=== PATIENT | female | born 1985 | race Caucasian/White ===

== ENCOUNTER 2022-02-06 09:04 | Day surgery (SDC) | payer MEDICAID, SELFPAY ==
[2022-02-06] VITALS (13 sets, daily range): BP systolic 81–116; BP diastolic 43–78; PULSE 51–72; RESP 16; TEMP 36.1–36.7; O2SAT 96–100; BMI 26.7
[2022-02-06 09:30] LABS: Ur HCG Qualitative* Negative (Negative)
[2022-02-06] MEDS: LACTATED RINGERS 1000 ML 1,000 ML 100 ML IV (09:45)
[2022-02-06] MEDS: SODIUM CHLORIDE 0.9 % (FLUSH) 10 ML SYRINGE IVF ×2 (09:45→12:19)
[2022-02-06] MEDS: CEFAZOLIN 2 GM INJ IVP (11:09)
[2022-02-06] MEDS: BUPIVACAINE 0.25% 30 ML INJECTION (11:50)
--- NOTE | 2022-02-06 11:53 | PM.ORPRC ---
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 MRI scan is consistent with this diagnosis. Operative intervention was recommended. For The risks, benefits and expected outcomes were discussed in detail. These included but were not limited to: Infection, bleeding, injury to blood vessel or nerve, venous thromboembolism. All questions were answered to their satisfaction. PROCEDURE: Spinal anesthesia was administered. The patient was placed supine on the operating room table. The right lower extremity was prepped and draped in the usual sterile fashion. The limb was exsanguinated with the Donal bandage. The pneumatic tourniquet was inflated to 300 mmHg. The previously placed standard anterolateral portal was established. It was quite difficult to enter the anterior aspect of the knee, presumably because of the scarring. In fact after multiple attempts through the standard anterolateral portal we elected to introduce the arthroscope into the knee through the previously placed anteromedial portal. Diagnostic arthroscopy was performed with findings as follows: There is a marked amount of scarring in the anterior aspect of the knee, anterior to the graft. The shaver was placed through the anterolateral portal and was used to debride the scarring to AD in visualization. The scarring was not just in the notch but was in the notch, anterior to the ACL and medial and lateral, just over the anterior horns of the medial and lateral menisci. The scar was aggressively debrided with the shaver through both portals. The suprapatellar pouch is normal. Articular surface on the patella is normal. Articular surface on the trochlea is normal. The medial gutter is normal. The medial compartment shows diffuse grade 3 change on the medial femoral condyle, grade 2 change on the medial tibial plateau. The medial meniscus is normal. The notch shows the ACL graft to be intact. The lateral compartment shows normal articular cartilage on the lateral femoral condyle and lateral tibial plateau. The lateral meniscus is normal. The lateral gutter is normal. Arthroscopic instruments were removed, the portal sites were Steri-Stripped closed, the knee was infiltrated with 30 mL of 0.25% Marcaine without epinephrine. A dry dressing was applied, the tourniquet was released. Sponge and needle counts were correct x 2. The patient tolerated the procedure well. There were no apparent complications. They were carefully transferred to the hospital bed and taken to the postanesthesia care unit in satisfactory condition. PLAN: The patient will be discharged to home. They may weightbear as tolerates. Range of motion will be unrestricted. They will follow up in the office next week for a wound check.
--- NOTE | 2022-02-06 12:04 | W.ANESCHARGE ---
Anesthesia Charges Start Date/Time Anesthesia Start Date: 02/06/22 Anesthesia Start Time: 10:56 Stop Date/Time Anesthesia Stop Date: 02/06/22 Anesthesia Stop Time: 12:02 Summary Emergency: No
--- NOTE | 2022-02-06 12:11 | SUR.PHASEI ---
Pts bp 81/49 placed in [place] pt did have spinal will continye to watch bp denies any chest pain,sob
--- NOTE | 2022-02-06 12:20 | SUR.PHASEI ---
pts bp 81/49 hr 54 5mg ephedrine given per order watch bp
--- NOTE | 2022-02-06 12:22 | W.ANESCHARGE ---
Anesthesia Charges Start Date/Time Anesthesia Start Date: 02/06/22 Anesthesia Start Time: 10:56 Stop Date/Time Anesthesia Stop Date: 02/06/22 Anesthesia Stop Time: 12:02 Summary Emergency: No
[2022-02-06] MEDS: hydrOXYzine pamoate 25 MG CAPSULE PO (13:20)
--- NOTE | 2022-02-06 13:53 | SUR.PHASEII ---
DISCHARGE INSTRUCTIONS GIVEN TO PT SHE UNDERSTANDS AND HAS NO FURTHER QUESTIONS.
== END 2022-02-06 14:14 | disposition home or self-care (01) ==
PROVIDERS: PCP Family Medicine; Visit Provider Orthopaedic Surgery
PROC: (CPT 29870; principal; 2022-02-06 10:30)
DX: T84.498A Other mechanical complication of other internal orthopedic devices, implants and grafts, initial encounter (principal); M25.861 Other specified joint disorders, right knee
CPT/HCPCS: 29877; 01400; 81025; A9270; J0690; J1100; J2250; J2400; J2405; J2704; J3010; J3490; J7120

== ENCOUNTER 2023-05-27 07:02 | Outpatient (CLI) | payer MEDICAID, SELFPAY ==
--- NOTE | 2023-05-27 07:15 | CRLHL7_ITS ---
For Patients: As a result of the Century Cures Act, medical imaging exams and procedure reports are released immediately into your electronic medical record. You may view this report before your referring provider. If you have questions, please contact your health care provider. Indication: BILATERAL LEG WEAKNESS Technique: Noncontrast sagittal T1 weighted, axial FLAIR, axial T2 weighted, SWI and axial diffusion weighted sequences are provided. Comparison: No prior studies available for comparison at this institution. Findings: The ventricles, sulci and gyri are normal size, shape and contour for age. The midline structures are centrally located with no evidence of shift. There are no suspicious intra or extra-axial fluid collections. No region of restricted diffusion. Expected flow voids in the cavernous carotids and basilar artery. No pathologic susceptibility artifacts. Mucosal thickening is noted in the left sphenoid sinus lateral recess and ethmoid air cells. Impression: 1. Unremarkable noncontrast MRI of the head. 2. Mild mucosal thickening in the left ethmoid air cells and the sphenoid sinus. Dictated by Homar Castrejon MD @ 05/27/2023 10:13:33 AM (Electronically Signed)
--- NOTE | 2023-05-27 08:00 | CRLHL7_ITS ---
For Patients: As a result of the Century Cures Act, medical imaging exams and procedure reports are released immediately into your electronic medical record. You may view this report before your referring provider. If you have questions, please contact your health care provider. Indication: Bilateral leg weakness Technique: Noncontrast sagittal and axial T1, T2, and sagittal STIR sequences are provided. Comparison: No prior studies available for comparison at this institution. Findings: Normal lumbar spine alignment. Vertebral body heights are maintained. No fractures. No prevertebral or paraspinal edema. No aggressive osseous lesions. Small Schmorl`s nodes in the T11-12 and T12-L1 endplates. The conus medullaris is normal in signal and location. Unremarkable sacroiliac joints. T10-T11: Normal disc and facet joints. No significant spinal canal stenosis or neural foramen narrowing. T11-12: Disc desiccation. Moderate disc space narrowing. Right paracentral disc extrusion measuring 7 mm AP with 7 mm cephalad migration flattens the ventral cord surface and resultant mild spinal canal stenosis. Bilateral facet arthrosis. Mild right neural foramen narrowing. No left neural foramen narrowing. T12-L1: Normal disc and facet joints. No significant spinal canal stenosis or neural foramen narrowing. L1-2: Normal disc and facet joints. No significant spinal canal stenosis or neural foramen narrowing. L2-3: Normal disc and facet joints. No significant spinal canal stenosis or neural foramen narrowing. L3-4: Normal disc and facet joints. No significant spinal canal stenosis or neural foramen narrowing. L4-5: Normal disc. Mild left facet arthrosis. Mild left neural foramen narrowing. No spinal canal stenosis or right neural foramen narrowing. L5-S1: Normal disc. Mild facet arthrosis. No significant spinal canal stenosis or neural foramen narrowing. Impression: 1. Normal alignment. No acute osseous or ligamentous abnormalities. 2. At T11-12, right paracentral disc extrusion with cephalad migration flattens the right ventral spinal cord surface and results in mild spinal canal narrowing. Mild right neural foramen narrowing. 3. At L4-5, mild left neural foramen narrowing. Otherwise no significant spinal canal stenosis or neural foramen narrowing. Dictated by Homar Castrejon MD @ 05/27/2023 10:20:02 AM (Electronically Signed)
== END 2023-05-27 07:03 | disposition home or self-care (01) ==
LOC: MRI 07:03
PROVIDERS: PCP Family Medicine; Visit Provider Student in an Organized Health Care Education/Training Program
DX: R20.0 Anesthesia of skin (principal); M51.26 Other intervertebral disc displacement, lumbar region; R20.2 Paresthesia of skin; R51.9 Headache, unspecified; H53.8 Other visual disturbances
CPT/HCPCS: 70551; 72148

== ENCOUNTER 2025-01-19 16:51 | Emergency (ER) | payer OTHER, SELFPAY ==
--- OUTSIDE RECORDS SUMMARY | 2025-01-19 16:53 | XMS_ITS | Referral Summary ---
Author Organization [facility] Address [address] [place] [address] Care Team Providers Care Protective Service Specialist Name Role Phone Margot Jo MD Primary Care Prov ider Allergies Active Allergy Reactions Criticality Noted Date Comments Methylprednisone Nausea,Vomiting,Othe r,D izziness Medium 06/16/2024 Patient had syncopal episode while receiving Solu-medrol IV push 125 mg. Patient got 62.5 mg prior to syncope. Patient had received this in the past and had no reaction. Medications norgestimate-et hinyl estradioL (SPRINTEC) 0.25-35 mg-mcg oral tablet TAKE 1 TABLET BY MOUTH DAILY. TAKE CONTINUOUSLY. Due for office visit/physical exam before next refill needed 4 Active SUMAtriptan succinate (IMITREX) 100 mg oral tablet Take 1 tablet (100 mg) by mouth as directed. May repeat after two hours. Maximum dose 200 mg/24 hours. 9 tablet 3 4 Active Miscellaneous Medical Supply 1 Units by [facility].(Non-Drug; Combo Route) route as needed. MSAA Cooling Vest for G35- Relapse-remittin g Multiple Sclerosis. To be used for heat related fatigue. 1 each 4 Active BD LUER-KURTIS SYRINGE 3 mL 25 gauge x 1 use as directed* 4 Active ublituximab-xii y (BRIUMVI) 25 mg/mL IV Soln 18 mL (450 mg) by Intravenous route. 4 Active diazePAM (VALIUM) 5 mg oral tablet Take one tablet 30 minutes prior to MRI. Take second tablet at time of MRI if needed. Will need a charter bus driver. 2 tablet 4 Active gabapentin (NEURONTIN) 100 mg oral capsule Take 1 capsule (100 mg) by mouth at bedtime. 90 capsule 3 5 Active Active Problems Problem Noted Date Diagnosed Date Vitamin B12 deficiency 10/05/2023 Multiple sclerosis, relapsing-remitting 09/14/19 24 Family history of breast cancer 10/28/2011 Colon polyp 08/12/2010 Overview (08/31/2023): Tubulovillous adenoma. Colonoscopy 07/2010 polyps repeat in 1 year Colonoscopy 08/2011 polyp repeat in 3 years Colonoscopy 10/2014 hyperplastic polyp repeat in 5 years Colonoscopy 11/2021 TA, repeat in 7 years Vitamin D deficiency 08/06/2010 JORGE III (cervical intraepith elial neoplasia grade III) with severe dysplasia 04/08/2006 Overview (08/31/2023): 02/2006 LSIL-H 03/2006 [place]: JORGE 2-3 03/2006 LEEP: JORGE 2-3 12/2006 NIL 03/2007 NIL 07/2009 NIL/HPV negative 07/2010 LSIL 08/2010 HPV negative; [place]: JORGE 1 03/2011 ASCUS/HPV negative 10/2011 ASCUS/HPV negative 10/2012 ASCUS/HPV negative 09/2014 NIL/HPV negative 01/2018 LSIL/HPV+ 02/2018 [place]: OJRGE 1 07/2019 ASCUS/HPV negative 11/2020 ASCUS/HPV negative 01/2021 [place]: Negative 05/2022 NIL/HPV negative. Plan: Pap/HPV due 05/2025. 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 [address] [facility] [employer] Care Teams Protective Service Specialist Relationship Specialty Start Date End Date Margot Jo MD [address] [place] [address] PCP - General Family Medicine - 08/31/23
--- OUTSIDE RECORDS SUMMARY | 2025-01-19 16:53 | XMS_ITS | Continuity of Care Document ---
Author Organization [facility] Address [address] [place] [address] Assessment Encounter Date Assessment Date Assessment LastModified by Organization Details LastModified Time 01/09/2025 01/09/2025 ASSESSMENT: Patient is a good candidate for conservative care and the prognosis is for a favorable outcome that achieves the patients' goals. We discussed etiology, activity modifications, home care, and other treatment options. Initially, it is recommended that the patient receive in-office treatment 1 times per week for 8 weeks at which time a re-evaluation will be performed to determine an appropriate change in plan. Initially, treatment will focus on joint manipulation to restore range of motion and reduce pain. We will slowly progress to therapeutic exercises and activities to improve function, strength, and stability may also be used as warranted. If the patient is not responding as expected, more invasive procedures will be discussed along with a referral. All considerations above were discussed with the patient and questions answered to satisfaction. If the patient should have any additional questions, or should the condition evolve or worsen, the patient should not hesitate to contact our office. ASSESSMENT: Patient is a good candidate for conservative care and the prognosis is for a favorable outcome that achieves the patients' goals. We discussed etiology, activity modifications, home care, and other treatment options. Initially, it is recommended that the patient receive in-office treatment 1 times per week for 8 weeks at which time a re-evaluation will be performed to determine an appropriate change in plan. Initially, treatment will focus on joint manipulation to restore range of motion and reduce pain. We will slowly progress to therapeutic exercises and activities to improve function, strength, and stability may also be used as warranted. If the patient is not responding as expected, more invasive procedures will be discussed along with a referral. All considerations above were discussed with the patient and questions answered to satisfaction. If the patient should have any additional questions, or should the condition evolve or worsen, the patient should not hesitate to contact our office. ecram Not available 01/09/2025 16:18:22 Plan of Treatment Reminders Order Date Submit Date Provider Last Modified By Organization Details Last Modified Time Details Appointments None record ed. Lab None record ed. Referral None record ed. Procedures None record ed. Surgeries None record ed. Imaging None record ed. Medication Orders None record ed. Patient TargetsNo targets recorded. Patient InstructionsNo instructions recorded. Reason for Referral None Reported. Problems Name Problem SNOMED Code Status Onset Date Resolution Date Notes Provider Name and Address Organization Details Recorded Time Cervical segmental dysfunction 491117856 Active 2024 Lm Man DC [address], [place], [address], [facility] 18:09:18 Neck pain 28728299 Active 2024 Lm Man DC [address], [place], [address], [facility] 18:09:18 Thoracic segmental dysfunction 643109115 Active 2024 Lm Man DC [address], [place], [address], [facility] 18:09:18 Lumbar segmental dysfunction 888873621 Active 2024 Lm Man DC [address], [place], [address], [facility] 18:09:18 Low back pain 662063669 Active 2024 Lm Man DC [address], [place], [address], [facility] 18:09:21 Somatic dysfunction of sacral spine 929089818 Active 2024 Lm Man DC [address], [place], [place], [address], [facility] 18:09:21 Problem Notes None recorded. Procedures Surgical History Date Name Laterality Status Provider Name and Address Organization Details Recorded Time 5 [address]: Spinal manipulation , 3 to 4 regions completed Lm Man DC [address], [place], [address], [facility] 01/09/2025 16:18:22 5 [address]: Spinal manipulation , 3 to 4 regions completed Lm Man DC [address], [place], [address], [facility] 12/12/2024 18:10:05 Imaging Results None recorded. Procedure Notes None recorded. Medical Equipment None Reported. Vitals None Recorded Social History None recorded. Functional Status None recorded. Mental Status None recorded. Family History Nothing Reported. Medical History No medical history recorded. Gynecological HistoryNo gynecological history recorded. Obstetrics History GPAL:G 0 P 0 0 0 0 Past Encounters Encounter ID Performer Location Encounter Start Date Encounter Closed Date Diagnosis/Indication Diagnosis SNOMED-CT Code Diagnosis ICD10 Code Diagnosis Note [id number] WINIFRED Kline [facility] & [address] [place] [address] 12/12/2024 16:42:30 12/12/2024 18:33:38 Cervical segmental dysfunction 696690366 M99.01 Neck pain 05762592 M54.2 Thoracic s egmental dysfunction 567743789 M99.02 Lumbar seg mental dysfunction 359392896 M99.03 Low back pain 528756463 M54.50 Somatic dy sfunction of sacral spine 415358265 M99.04 [id number] Lm Man DC [facility] & [address] [place] [address] 01/09/2025 15:34:10 01/09/2025 16:44:13 Cervical segmental dysfunction 660281745 M99.01 Neck pain 67581295 M54.2 Thoracic s egmental dysfunction 523340298 M99.02 Lumbar seg mental dysfunction 836471347 M99.03 Low back pain 187493302 M54.50 Somatic dy sfunction of sacral spine 489556148 M99.04 Health Concerns Section Related Observation LastModified by Organization Detai ls LastModified Time None Recorded Concern Status LastModified by Organization Details LastModified Time None Recorded Payers Encounter Date Sequence Insurance Name Policy Number Policy Sotomayor Covered Member ID Sotomayor Member ID Guarantor Name 01/09/[address] [facility] [id number] Jania Mathis [id number] Jania Mathis Notes Date Note Type Note Provider Name and Address Organization Details Recorded Time 01/09/2025 text/html HPI - Cervical SpineReported bypatient.Location: right Quality:aching Severity:moderate Duration:2 weeks Timing:gradual Alleviating Factors:ice Aggravating Factors:sitting Associated Symptoms:no numbness/tinglingHP I - Lumbar SpineReported bypatient.Location: left; With radiation to knee Quality:aching Severity:not changing Timing:morning Aggravating Factors:standing Alleviating Factors:ice Lm Man DC [address], [place], [address], [facility] 01/09/2025 16:19:04 OBGyn Episode No OBEpisode recorded.
--- OUTSIDE RECORDS SUMMARY | 2025-01-19 16:53 | XMS_ITS | Clinical Summary ---
Author Organization [facility] Address [address] [place] [address] Care Team Providers Care Exercise Instructor Name Role Phone Margot Jo MD Primary [...] Active Miscellaneous Medical Supply 1 Units by [facility].(Non-Drug; Combo Route) route as needed. MSAA Cooling [...] of MRI if needed. Will need a recycling collections driver. 2 tablet 4 Active gabapentin (NEURONTIN) [...] dysplasia 04/08/2006 Overview (08/31/2023): 02/2006 LSIL-H 03/2006 [place]: JORGE 2-3 03/2006 LEEP: JORGE 2-3 12/2006 NIL 03/2007 NIL 07/2009 NIL/HPV negative 07/2010 LSIL 08/2010 HPV negative; [place]: JORGE 1 03/2011 ASCUS/HPV negative 10/2011 ASCUS/HPV negative 10/2012 ASCUS/HPV negative 09/2014 NIL/HPV negative 01/2018 LSIL/HPV+ 02/2018 [place]: JORGE 1 07/2019 ASCUS/HPV negative 11/2020 ASCUS/HPV negative 01/2021 [place]: Negative 05/2022 NIL/HPV negative. Plan: Pap/HPV due 05/2025. 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 Gender Identity Not on file Sexual Orientation [...] Mass Index - - Plan of Treatment Health Maintenance Due Date Last Done Comments Lipid Screening 1983 Pap Smear 1983 Anxiety Screening (JOYA-2) 1984 Depression Assessment (PHQ-2) 1984 Mammogram Screening 10/29/2013 10/30/2011 COVID-19 Vaccine (2023-2 5 season) 2024 Influenza Vaccine (#1) 2025 7, 05/18/2001 Adult Tetanus Booster 08/01/2029 08/01/2019 , 07/24/2009 RSV Vaccines (1 - 1-dose 75+ series) 2058 Hepatitis C Screening Completed 05/22/2023 Meningococcal B Vaccine Aged Out No l onger eligible based on patient's age to complete this topic Pneumococcal Vaccine Aged Out No long er eligible based on patient's age to complete this topic Insurance apt[address] [phone] [facility] [employer] Care Teams Exercise Instructor Relationship Specialty Start Date End Date Margot Jo MD [address] [place] [address] PCP - General Family Medicine - 08/31/23
--- OUTSIDE RECORDS SUMMARY | 2025-01-19 16:53 | XMS_ITS | Clinical Summary ---
Author Organization [facility] Address [address] [place] [address] Care Team Providers Care Cut Off Saw Set Up Operator Name Role Phone Margot Jo MD Primary Care Prov ider Allergies Active Allergy Reactions Criticality Noted Date Comments Methylprednisolone Dizziness,Nausea Only,Other - Describe In Comment Field,Vomiting Medium 06/16/2024 Patient had syncopal episode while receiving Solu-medrol IV push 125 mg. Patient got 62.5 mg prior to syncope. Patient had received this in the past and had no reaction. Medications gabapentin (NEURONTIN) 100 mg capsule Take 100 mg by mouth three times daily. 08/31/19 24 Active norgestimate-ethi nyl estradiol, 0.25-35 mg-mcg, (Sprintec) 0.25-35 mg-mcg tabletIndications :Oral contraceptive use TAKE 1 TABLET BY MOUTH DAILY. TAKE CONTINUOUSLY. Due for office visit/physical exam before next refill needed 112 Tablet 3 12/16/19 24 Active SUMAtriptan (IMITREX) 100 mg tablet Take 100 mg by mouth. 12/18/19 24 Active ublituximab-xiiy (Briumvi) 25 mg/mL injection Inject 18 mL (450 mg) intravenous. 01/13/20 24 Active cyanocobalamin 1,000 mcg/mL injectionIndicati ons:Vitamin B 12 deficiency Inject 1 mL (1,000 mcg) intramuscular every 2 weeks. 6 mL 01/06/20 25 Active Syringe-Needle, Safety,Disp Un 3 mL 25 gauge x 1 syrgIndications:V itamin B 12 deficiency As directed. 6 Each 01/06/20 25 Active miscellaneous medical supply misc As directed 1 unit. 12/22/19 24 025 Discontin ued(*Med complete/ Regimen complete/ Level of care change) cholecalciferol, vitamin D3, (VITAMIN D3 ORAL) Take by mouth. 06/09 025 Discontin ued(*Med complete/ Regimen complete/ Level of care change) cyanocobalamin (VITAMIN B12) 1,000 mcg/mL injectionIndicati ons:Vitamin B 12 deficiency Inject 1 mL (1,000 mcg) intramuscular every 2 weeks. 6 mL 09/17/19 25 025 Discontin ued(Reord er (E-cancel not sent)) Syringe-Needle, Safety,Disp Un 3 mL 25 gauge x 1 syrgIndications:V itamin B 12 deficiency As directed. 6 Each 09/17/19 25 025 Discontin ued(Reord er (E-cancel not sent)) cyanocobalamin 1,000 mcg/mL injectionIndicati ons:Vitamin B 12 deficiency Inject 1 mL (1,000 mcg) intramuscular every 2 weeks. 6 mL 1 01/05/20 25 025 Discontin ued(*Erro r/order entry technician error) Syringe-Needle, Safety,Disp Un 3 mL 25 gauge x 1 syrgIndications:V itamin B 12 deficiency As directed. 6 Each 1 01/05/20 25 025 Discontin ued(*Erro r/order entry technician error) Active Problems Problem Noted Date Diagnosed Date MS (multiple sclerosis) 12/16/2023 Overview (12/16/2023): Diagnosis Aug 2023 Relapsing remitting multiple sclerosis Vitamin B12 deficiency 10/05/2023 Family history of breast cancer 10/28/2011 Colon polyp 08/12/2010 Overview (12/05/2021): Tubulovillous adenoma. Colonoscopy 07/2010 polyps repeat in 1 year Colonoscopy 08/2011 polyp repeat in 3 years Colonoscopy 10/2014 hyperplastic polyp repeat in 5 years Colonoscopy 11/2021 TA, repeat in 7 years Vitamin D deficiency 08/06/2010 JORGE III (cervical intraepith elial neoplasia grade III) with severe dysplasia 04/08/2006 Overview (07/02/2022): 02/2006 LSIL-H 03/2006 [place]: JORGE 2-3 03/2006 LEEP: JORGE 2-3 12/2006 NIL 03/2007 NIL 07/2009 NIL/HPV negative 07/2010 LSIL 08/2010 HPV negative; [place]: JORGE 1 03/2011 ASCUS/HPV negative 10/2011 ASCUS/HPV negative 10/2012 ASCUS/HPV negative 09/2014 NIL/HPV negative 01/2018 LSIL/HPV+ 02/2018 [place]: JORGE 1 07/2019 ASCUS/HPV negative 11/2020 ASCUS/HPV negative 01/2021 [place]: Negative 05/2022 NIL/HPV negative. Plan: Pap/HPV due 05/2025. Resolved Problems Problem Noted Date Diagnosed Date Resolved Date Cervical dysplasia 07/24/2009 8 Encounters Date Type Department Care Team Description 01/05/2025 Orders Only [facility] [address] [place] [address] La Thomas PA <No scans attached> 01/04/2025 11:10 AM CDT Office Visit [facility] [address] [place] [address] La Thomas PA Follow Up (B-12 levels. ) 01/04/2025 Travel from Last 3 Months Immunizations Immunization Administration Dates Next Due Hepatitis B (Adult) 10/26/2023,09/25/2023 Influenza, IIV3 (Age >=3 years) 06/08/2007,05/18 Tdap 08/01/2019,07/24/2009 Family History Medical History Relation Name Comments Diabetes Father type II Heart Disease Father [place] in early 40 's and one in his early 50's Hypertension Father Cancer-breast Maternal Aunt No Known Problems Maternal Grandfather Arthritis Maternal Grandmother Lung cancer Maternal Grandmother heavy s moker Good Health Mother Cancer-breast Other dad grandmothe r Stroke Other Mother's cousin g had stroke in mid 20's Heart Disease Paternal Grandfather [place] Arthritis Paternal Grandmother Cancer-breast Paternal Grandmother Dementia Paternal Grandmother Diabetes Paternal Grandmother Type II GI Disease Paternal Grandmother Hypertension Paternal Grandmother Other Paternal Grandmother polycys tic kidney Good Health Sister 1 [place] Good Health Sister 2 Colon polyps Sister 3 Eliane Relation Name Status Comments Father Maternal Aunt Maternal Grandfather Maternal Grandmother Mother Other Paternal Grandfather Paternal Grandmother Sister 1 [place] Sister 2 Sister 3 Eliane Alive Social History Tobacco Use Types Packs/Day Years Used Date Smoking Tobacco: Former Cigarettes Smokeless Tobacco: Former Quit: 08/2017 Tobacco Cessation:Counseling Given: Yes Alcohol Use Standard Drinks/Week Comments Not Currently 0 (1 standard drink = 0.6 oz pur e alcohol) PHQ-2 Answer Date Recorded PHQ-2 TOTAL SCORE 0 12/16/2023 Social Connections Answer Date Recorded Do you often feel lonely or isolated from those around you? 0 01/04/2025 Financial Resource Strain Answer Date R ecorded Difficulty of Paying Living Expenses 3 01/04/2025 Difficulty of Paying Living Expenses Not on file 01/04/2025 Food Insecurity Answer Date Recorded Do you worry your food will run out before you are able to buy more? 1 01/04/2025 Transportation Needs Answer Date Record ed Does lack of transportation keep you from medica l appointments? 1 01/04/2025 Does lack of transportation keep you from work, meetings or getting things that you need? 1 01/04/2025 Housing Stability Answer Date Recorded What is your housing situation today? 1 01/04/2025 Utilities Answer Date Recorded Do you have trouble paying f or utilities (for example, heat, electricity, water, phone)? 1 01/04/2025 Comments No Sex and Gender Information Value Date Recorded Sex Assigned at Not on file Legal Sex Female 5:22 AM JUICE WEIGHER Gender Identity Not on file Sexual Orientation Not on file Obstetrics History Para Term AB IAB SAB Ectopic Multiple Livin g Live Births 2 2 2 2 1 Date Outcome GA Total Labor Labor/2nd/3rd Weight Sex Type Anes PTL Barbara A1 A5 Name Clin Term 09/17 Term 39w 0d 12h 00m/ 2.75 kg (6 lb 1 oz) F VAGINAL VACU Livin g Rhoda Last Filed Vital Signs Vital Sign Reading Time Taken Comments Blood Pressure 120/84 01/04/2025 11:09 AM CDT Pulse 69 01/04/2025 11:09 AM CDT Temperature 36.6 C (97.9 F) 05/09/2023 12:57 PM CDT Respiratory Rate 16 08/10/2023 4:25 PM JUICE WEIGHER Oxygen Saturation 99% 01/04/2025 11:09 AM CDT Inhaled Oxygen Concentration - - Weight 61.2 kg (135 lb) 01/04/2025 11:09 AM CDT Height 161.3 cm (5' 3.5) 12/16/2023 3:29 PM CDT Body Mass Index 23.54 12/16/2023 3:29 PM CDT Plan of Treatment Health Maintenance Due Date Last Done Comments COVID-19 vaccine series ( season) 2024 Hepatitis B series for 19+ (3 of 3 - 19+ 3-dose series) 03/27/2024 10/26/2023, 09/25/2023 BMI (ht and wt on same day) for age 18+ 12/15/2024 12/16/2023, 05/26/2022, 01/30/2022, Additional history exists Depression screening for age 12+ 12/17/2024 12/18/2023, 12/16/2023, 05/26/2022, Additional history exists Influenza Vaccine (#1) 2025 06/08/2007, 2000 Pap test for age 21-65 05/26/2025 , 05/26/2022, 01/29/2021, Additional history exists Colonoscopy through age 75 11/29/202811/29, 11/29/2021, 10/18/2014, Additional history exists Tetanus booster 08/01/2029 08/01/2019, 07/24/2009 HIV for age 15-65 Completed 05/22/2023, 03/26/2007 Hepatitis C screening for age 18-79 Completed 05/22/2023, 05/26/2022 Pneumococcal series for age 6-49 Aged Out No longer eligible based on patient's age to complete this topic Procedures Procedure Name Priority Date/Time Associated Diagnosis Comments VITAMIN B12 Routine 01/04/2025 1:33 PM CDT Vitamin B 12 deficiency VITAMIN D 25 (DEFICIENCY) Routine 01/04/2025 1:33 PM CDT Vitamin D deficiency ANTI HIV 1/2 Routine 05/22/2023 12:45 PM JUICE WEIGHER Bilateral leg numbness ANTI HCV Routine 05/22/2023 12:45 PM JUICE WEIGHER Bilateral leg numbness HPV HIGH RISK Routine 05/26/2022 1:30 PM JUICE WEIGHER Pap smear for cervical cancer screening COLONOSCOPY 11/29/2021 10:35 AM CDT from Last 3 Months or Most Recently Relevant to Health Maintenance Results * VITAMIN D 25 (DEFICIENCY) (01/04/2025 1:33 PM CDT) VITAMIN D,25-OH,TOTAL,IA 37 30 - 100 ng/mL [facility] Comment: Vitamin D Status 25-OH Vitamin D: Deficiency: <20 ng/mL Insufficiency: 20 - 29 ng/mL Optimal: > or = 30 ng/mL For 25-OH Vitamin D testing on patients on D2-supplementation and patients for whom quantitation of D2 and D3 fractions is required, the QuestAssureD(TM) 25-OH VIT D, (D2,D3), LC/MS/MS is recommended: order code 81497 (patients >2yrs). See Note 1 Note 1 For additional information, please refer to http://education.Equipio.com.Lockr/faq/FTI751 (This link is being provided for informational/ educational purposes only.) Blood BLOOD SPECIMEN / Unknown 01/04/2025 1:33 PM CDT 01/04/2025 1:34 PM CDT us La DORAN SEND OUTS Final Res ult [facility] [address] [place] [address], [facility] [address] [place] [address] * VITAMIN B12 (01/04/2025 1:33 PM CDT) [facility] VITAMIN B12 494 200 - 1,100 pg/mL [facility] Clark Blood BLOOD SPECIMEN / Unknown 01/04/2025 1:33 PM CDT 01/04/2025 1:34 PM CDT La DORAN CHEMISTRY Final Res ult [facility] [address] [place] [address], [facility] [address] [place] [address] * ANTI HCV (05/22/2023 12:45 PM JUICE WEIGHER) [facility] HEPATITIS C ANTIBODY Non-Reacti ve Non-React malcolm 05/22/2023 9:33 PM JUICE WEIGHER [facility] Comment:Please note, per www .CDC.gov: If a patient is known to be at high risk of HCV infection, or is symptomatic, and the physician's suspicion of HCV infection is high, HCV RNA testing is often employed and is of diagnostic value, even after an initial negative anti-HCV test result. Blood BLOOD SPECIMEN / Unknown Venipuncture / Unknown 05/22/2023 12:45 PM JUICE WEIGHER 05/22/2023 12:45 PM JUICE WEIGHER La DORAN SEND OUTS Final Res ult [facility] [address] [place] [address], * ANTI HIV 1/2 (05/22/2023 12:45 PM JUICE WEIGHER) [facility] HIV-1/HIV-2 SCREEN Non-Reacti ve Non-Reacti ve 05/22/2023 9:46 PM JUICE WEIGHER [facility] Comment:HIV-1 p24 and HIV-1/ HIV-2 Ab Not Detected. Blood BLOOD SPECIMEN / Unknown Venipuncture / Unknown 05/22/2023 12:45 PM JUICE WEIGHER 05/22/2023 12:45 PM JUICE WEIGHER us La DORAN SEND OUTS Final Res ult [facility] [address] [place] [address], * HPV HIGH RISK (05/26/2022 1:30 PM JUICE WEIGHER) TYPE 16 Negative Negative 05/28/2022 5:14 PM JUICE WEIGHER [facility] TYPE 18 Negative Negative 05/28/2022 5:14 PM JUICE WEIGHER [facility] OTHER HIGH RISK TYPES Negative Negative 05/28/2022 5:14 PM JUICE WEIGHER [facility] Other (Cervical/Vagina l) Non-Blood / Unknown 05/26/2022 1:30 PM JUICE WEIGHER 05/27/2022 9:55 AM JUICE WEIGHER Narrative [facility] - 05/28/2022 5:14 PM JUICE WEIGHER HPV types 16, 18, 31, 33, 35, 39, 45, 51, 52, 56, 58, 59, 66 and 68 DNA were undetectable or below the pre-set threshold. Methodology: Mehdi Sonu 4800 HPV Test us Margot Jo MD MICROBIOLOGY Fi nal Result Performing Organization Address City/[facility]/ZIP Co de Phone Number [facility] [address] [place] [address], [place] * COLONOSCOPY (11/29/2021 10:35 AM CDT) 11/29/2021 10:3 5 AM CDT Narrative Transcriptions Donal Ray MD - 11/29/2021 11:14 AM CDT Patient Name: Jania Mathis Procedure Date: 11/29/2021 Gender: Female Date of : 1985 Admit Type: Outpatient Procedure: Colonoscopy Proceduralist: Donal Ray MD , Patsy Vázquez (Nurse) Indications/Pre-Op Diagnosis: High risk colon cancer surveillance:Personal history of adenoma (10 mm or greater insize), Last colonoscopy: October 2014 Medications: Fentanyl 100 micrograms IV, Midazolam 4 mgIV, The level of sedation administered wasmoderate Procedure Description: The patient had risks, benefits and alternatives explained to andgave informed consent. The patient had a stable cardiopulmonary status and judged an adequate candidate for conscious sedation. The PCF-[id number] [id number] was passed through the anus and advanced tothe cecum, identified by appendiceal orifice and ileocecal valve. The colonoscopy was performed without difficulty. The patient toleratedthe procedure well. The quality of the bowel preparation was good. The ileocecal valve, appendiceal orifice, and rectum were photographed. Complications: No immediate complications. Estimated Blood Loss & Specimen: Estimated blood loss: none. Specimen collected - Yes and sent to Laboratory Findings: The perianal and digital rectal examinations were normal. A 3 mm polyp was found in the transverse colon. The polyp wassessile. The polyp was removed with a cold snare. Resection was complete, butthe polyp tissue was not retrieved. A 5 mm polyp was found in the sigmoid colon. The polyp was semi-pedunculated. The polyp was removed with a hot snare. Resectionand retrieval were complete. The exam was otherwise without abnormality. Impressions/Post-Op Diagnosis: - One 3 mm polyp in the transverse colon, removed with a cold snare. Complete resection. Polyp tissue not retrieved. - One 5 mm polyp in the sigmoid colon, removed with a hot snare. Resected and retrieved. - The examination was otherwise normal. Recommendation: - Patient has a contact number available for emergencies. The signsand symptoms of potential delayed complications were discussed with the patient. Return to normal activities tomorrow. Written discharge instructions were provided to the patient. - Resume previous diet. - Continue present medications. - Await pathology results. - Repeat colonoscopy is recommended. The colonoscopy date will be determined after pathology results from today's exam become available for review. Moderate Sedation: Moderate (conscious) sedation was administered by the endoscopy nurse and supervised by the endoscopist. The following parameters were monitored: oxygen saturation, heart rate, respiratory rate, blood pressure, adequacy of pulmonary ventilation and reponse to care. Please refer to the patient's medical record flowsheets and nursing notes for moderate sedation details. Total physician intraservice time was 25 minutes. Donal Ray MD 11/29/2021 11:14:43 AM This report has been signed electronically. Note Initiated On: 11/29/2021 10:35 AM Procedure Code(s): --- Professional --- 31939, Colonoscopy, flexible; with removalof tumor(s), polyp(s), or other lesion(s) bysnare technique Diagnosis Code(s): --- Professional --- Z86.010, Personal history of colonicpolyps D12.3, Benign neoplasm of transverse colon (hepatic flexure or splenic flexure) D12.5, Benign neoplasm of sigmoid colon CPT copyright 2020 [employer]. All rights reserved. The codes documented in this report are preliminary and upon investigations chief reviewmay be revised to meet current compliance requirements. Scope In: 10:48:41 AM Scope Withdrawal Time 0 hours 14 minutes 57 seconds Scope Out: 11:10:53 AM us Donal Ray MD PROCEDURE ORD Final Res ult from Last 3 Months or Most Recently Relevant to Health Maintenance Insurance [employer] INS on file Care Teams Cut Off Saw Set Up Operator Relationship Specialty Start Date End Date Margot Jo MD [address] [place] [address] PCP - General Family Practice 08/31/12
--- OUTSIDE RECORDS SUMMARY | 2025-01-19 16:53 | XMS_ITS | Data Portability ---
Author Organization [place] - [facility], [employer] - [employer] SENIOR ELECTRICAL DESIGN ENGINEER [facility] Address [address] [place] [address] Assessment Encounter Date Assessment Date Assessment LastModified by Organization Details LastModified Time 12/12/2024 12/12/2024 ASSESSMENT: Patient is a good candidate for [...] to contact our office. ecram Not available 12/12/2024 18:09:20 01/09/2025 01/09/2025 ASSESSMENT: Patient is a good [...] Organization Details Recorded Time Cervical segmental dysfunction 213263653 Active 2024 Lm Man DC [address], [place], [address], [facility] - [facility] 18:09:18 Neck pain 58588951 Active 2024 Lm Man DC [address], [place], [address], [facility] 18:09:18 Thoracic segmental dysfunction 834862901 Active 2024 Lm Man DC [address], [place], [address], [facility] 18:09:18 Lumbar segmental dysfunction 727669826 Active 2024 Lm Man DC [address], [place], [address], [facility] 18:09:18 Low back pain 189268325 Active 2024 Lm Man DC [address], [place], [address], [facility] 18:09:21 Somatic dysfunction of sacral spine 141653142 Active 2024 Lm Man DC [address], [place], [address], [facility] 18:09:21 Problem Notes None recorded. Procedures Surgical History Date Name Laterality Status Provider Name and Address Organization Details Recorded Time 5 38664: Spinal manipulation , 3 to 4 regions completed Lm Man DC [address], [place], [address], [facility] 01/09/2025 16:18:22 5 [address]: Spinal manipulation , 3 to 4 regions completed Lm Man DC [address], [place], [address], [facility] 12/12/2024 18:10:05 Imaging Results None recorded. Procedure [...] SNOMED-CT Code Diagnosis ICD10 Code Diagnosis Note [id number] Lm Man DC [address] [place] [address] 12/12/2024 16:42:30 12/12/2024 18:33:38 Cervical segmental dysfunction 295807506 M99.01 Neck pain 33302496 M54.2 Thoracic s egmental dysfunction 995410455 M99.02 Lumbar seg mental dysfunction 438192989 M99.03 Low back pain 095829005 M54.50 Somatic dy sfunction of sacral spine 075954887 M99.04 [id number] Lm Man DC [facility] [address] [place] [address] 01/09/2025 15:34:10 01/09/2025 16:44:13 Cervical segmental dysfunction 171972167 M99.01 Neck pain 41856862 M54.2 Thoracic s egmental dysfunction 487568041 M99.02 Lumbar seg mental dysfunction 289298371 M99.03 Low back pain 124089394 M54.50 Somatic dy sfunction of sacral spine 694741982 M99.04 Health Concerns Section Related Observation LastModified by Organization Detai ls LastModified Time None Recorded Concern Status LastModified by Organization Details LastModified Time None Recorded Advance Directives Directive None Recorded Payers Insurance Date Sequence Insurance Name Policy Number Policy Sotomayor Covered Member ID Sotomayor Member ID Guarantor Name 01/09/2025 1 *SELF PAY* Sadie orquidea Mathis 01/12/[address] [facility] [id number] Jania Mathis [id number] Jania Del Notes Date Note Type Note Provider Name and Address Organization Details Recorded Time 12/12/2024 text/html HPI - Cervical SpineReported bypatient.Location: right Quality:aching Severity:moderate Duration:2 weeks Timing:gradual Alleviating Factors:ice Aggravating Factors:sitting Associated Symptoms:no numbness/tinglingHP I - Lumbar SpineReported bypatient.Location: left; With radiation to knee Quality:aching Severity:not changing Timing:morning Aggravating Factors:standing Alleviating Factors:elli Ji Donovan, WINIFRED [address], [place], [address], [facility] 12/12/2024 18:10:38 01/09/2025 text/html HPI - Cervical SpineReported bypatient.Location: right Quality:aching Severity:moderate Duration:2 weeks Timing:gradual Alleviating Factors:ice Aggravating Factors:sitting Associated Symptoms:no numbness/tinglingHP I - Lumbar SpineReported bypatient.Location: left; With radiation to knee Quality:aching Severity:not changing Timing:morning Aggravating Factors:standing Alleviating Factors:elli Ji WINIFRED Man [address], [place], [address], [facility] 01/09/2025 16:19:04 OBGyn Episode No OBEpisode recorded.
--- OUTSIDE RECORDS SUMMARY | 2025-01-19 16:54 | XMS_ITS | Continuity of Care Document ---
Author Organization [place] [facility] Address [address] [place] [address] Assessment Encounter Date Assessment Date Assessment LastModified [...] our office. ecram Not available 12/12/2024 18:09:20 Plan of Treatment Reminders Order Date Submit [...] Organization Details Recorded Time Cervical segmental dysfunction 903036939 Active 2024 Lm Man DC [address], [place], [address], [facility] 18:09:18 Neck pain 10709301 Active 2024 Lm Man DC [address], [place], [address], [facility] 18:09:18 Thoracic segmental dysfunction 887003087 Active 2024 Lm Man DC [address], [place], [address], [facility] 18:09:18 Lumbar segmental dysfunction 631352704 Active 2024 Lm Man DC [address], [place], [address], [facility] 18:09:18 Low back pain 440770374 Active 2024 Lm Man DC [address], [place], [address], [facility] 18:09:21 Somatic dysfunction of sacral spine 353817603 Active 2024 Lm Man DC [address], [place], [place], [address], [facility] 18:09:21 Problem Notes None recorded. Procedures Surgical History Date Name Laterality Status Provider Name and Address Organization Details Recorded Time 5 [address]3084: Spinal manipulation , 3 to 4 regions completed Lm Man DC [address], [place], [address], [facility] 01/09/2025 16:18:22 5 [address]185: Spinal manipulation , 3 to 4 regions completed Lm Man DC [address], [place], [address], [facility] 12/12/2024 18:10:05 Imaging Results None recorded. [...] SNOMED-CT Code Diagnosis ICD10 Code Diagnosis Note [id number] [facility] [address] [place] [address] 12/12/2024 16:42:30 12/12/2024 18:33:38 Cervical segmental dysfunction 042390772 M99.01 Neck pain 48744876 M54.2 Thoracic s egmental dysfunction 298957603 M99.02 Lumbar seg mental dysfunction 792786104 M99.03 Low back pain 241002683 M54.50 Somatic dy sfunction of sacral spine 938292050 M99.04 Health Concerns Section Related Observation LastModified by Organization Detai ls LastModified Time None Recorded Concern Status LastModified by Organization Details LastModified Time None Recorded Payers Encounter Date Sequence Insurance Name Policy Number Policy Sotomayor Covered Member ID Sotomayor Member ID Guarantor Name 12/12/2024 1 *SELF PAY* An orquidea Mathis Notes Date Note Type Note Provider Name and Address Organization Details Recorded Time 12/12/2024 text/html HPI - Cervical SpineReported bypatient.Location: right Quality:aching Severity:moderate Duration:2 weeks Timing:gradual Alleviating Factors:ice Aggravating Factors:sitting Associated Symptoms:no numbness/tinglingHP I - Lumbar SpineReported bypatient.Location: left; With radiation to knee Quality:aching Severity:not changing Timing:morning Aggravating Factors:standing Alleviating Factors:ice Lm Man DC [address], [place], [address], [facility] 12/12/2024 18:10:38 OBGyn Episode No OBEpisode recorded.
[2025-01-19 17:01] VITALS: BP 155/89; PULSE 74; RESP 18; TEMP 36.7; O2SAT 100; BMI 20.8
--- NOTE | 2025-01-19 17:15 | ED_ITS ---
HPI - General Adult General Time Seen by Provider: 17:15 Date Seen: 01/19/25 Chief complaint: Extremity Pain/Injury, Upper Stated complaint: poss. blood clot from infusion, sent by MS doctor Time Seen by Provider: 01/19/25 17:14 Source: patient, RN notes reviewed and old records reviewed Mode of arrival: ambulatory Limitations: no limitations History of Present Illness HPI narrative: Jania is a very pleasant 39-year-old female with recent infusion for her MS 3 weeks ago now with increasing left arm pain and heaviness. She notes that there was a challenge and starting her IV at the previous infusion. They started it in her hand. She notes that she had aching in her hand and arm that night but thought it was perhaps from the medication. She is on IV infusions for her MS. She notes that the pain has become gradually worse and over the past few days she has noticed a bumps in the forearm. She has not had fever or chills. She notes that her arm feels heavy. No shortness of breath cough or fever. No history of DVT or thrombophlebitis in the past. Related Data Home Medications ?Medication ?Instructions ?Recorded ?Confirmed norgestimate 0.25 mg-ethinyl 1 tab PO DAILY 02/05/22 0 01/19/25 estradiol 0.035 mg tablet (Estarylla) gabapentin 100 mg capsule 100 mg PO QPM 01/19/2501/19 ublituximab-xiiy 25 mg/mL 450 mg IV Q24W 01/19/2501/10 intravenous solution (Briumvi) Allergies Allergy/AdvReac Type Severity Reaction Status Date / Time solumedrol Allergy Unknown Uncoded 01/19/25 17:07 Review of Systems Status of ROS: Reports: 6 or more systems reviewed and unremarkable except as noted in History and below Const: Denies: fever, chills or fatigue ENMT: Denies: nasal congestion Cardio: Denies: chest pain or shortness of breath with exertion Resp: Denies: shortness of breath or cough GI: Denies: vomiting Integ/Breast: Reports: skin pain, skin tenderness and skin swelling; Denies: redness Endo: Denies: fatigue [facility] Medical History Asthma ?J45.909 - Unspecified asthma, uncomplicated (ICD-10) 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 ?D06.9 - Carcinoma in situ of cervix, unspecified (ICD-10) Polyp of colon ?K63.5 - Polyp of colon (ICD-10) Vitamin D deficiency ?E55.9 - Vitamin D deficiency, unspecified (ICD-10) Surgical History History of arthroscopy of right knee (02/06/22) ?Z98.890 - Other specified postprocedural states (ICD-10) H/O LEEP ?Z98.890 - Other specified postprocedural states (ICD-10) Hx of colonoscopy ?Z98.890 - Other specified postprocedural states (ICD-10) History of reconstruction of anterior cruciate ligament tear (01/05/20) ?Z98.890 - Other specified postprocedural states (ICD-10) Family History Father Bleeding disorder Diabetes High blood pressure Stroke Mental disorder Paternal Grandfather Colorectal cancer Maternal Grandfather Diabetes High blood pressure Other Breast cancer Social History Smoking Status: Former smoker What tobacco products do you use: cigarettes Smoking quit date/years: <= 15 years ago Do you use any of these nicotine containing products: None How often do you have a drink containing alcohol: 2-4 times a month Alcohol type: beer AUDIT-C Alcohol total score: 2 Non-prescribed substance use: denies use Caffeine: Yes (COFFEE AND POP) Are you using contraception or practicing any form of control: Yes (BCP) service: No Exam Narrative: Exam Narrative: Jania is alert and oriented. No acute distress. External ears eyes nose clear. Heart with regular rate and rhythm lungs are clear. Examination of the left arm shows no evidence of erythema but she does have point tenderness extending from the lateral dorsum through the lateral aspect of the forearm. There does appear to be a ropy type quality as well and it is extremely tender to the touch. I do not note any increased warmth in this area. She is able to flex and extend her arm. Const: Vital Signs, click to edit/add: Vital Signs - 24 hr 01/19/25 17:01 Temperature 98.0 F Pulse Rate [Pulse Oximeter] 74 Respiratory Rate 18 Blood Pressure [Ri ght Upper Arm] 155/89 H Pulse Oximetry 100 Oxygen Delivery Me thod Room Air Documenting provider has reviewed patient's vital signs: yes Course Course ED Course: Differential diagnosis includes but is not limited to DVT, superficial thrombophlebitis, cellulitis, nerve pain. Will have patient undergo ultrasound as well as check CBC, basic panel and CRP. She is declining any pain medications at this time. Reevaluation(s) Reevaluation #1: CRP and white count within normal limits. Hemoglobin is normal. Chemistry panel essentially normal. Vital Signs Vital signs: Initial Vital Signs Temperature 98.0 F 01/19/25 17:01 Temperature Source Temporal Artery Scan 01/19/25 17:01 Pulse Rate 74 01/19/25 17:01 Respiratory Rate 18 01/19/25 17:01 Blood Pressure 155/89 H 01/19/25 17:01 Blood Pressure Mean 111 H 01/19/25 17:01 Blood Pressure Position Sitting 01/19/25 17:01 Pulse Oximetry 100 01/19/25 17:01 Oxygen Delivery Method Room Air 01/19/25 17:01 Vital Signs Temperature 98.0 F 01/19/25 17:01 Pulse Rate 74 01/19/25 17:01 Respiratory Rate 18 01/19/25 17:01 Blood Pressure 155/89 H 01/19/25 17:01 Pulse Oximetry 100 01/19/25 17:01 Oxygen Delivery Method Room Air 01/19/25 17:01 Temperature 98.0 F 01/19/25 17:01 Pulse Rate 74 01/19/25 17:01 Respiratory Rate 18 01/19/25 17:01 Blood Pressure 155/89 H 01/19/25 17:01 Pulse Oximetry 100 01/19/25 17:01 Oxygen Delivery Method Room Air 01/19/25 17:01 Medical Decision Making MDM Narrative Medical decision making narrative: 1. Superficial thrombophlebitis-left arm. Reassuring with no evidence of DVT. At this time discussed with patient the use of ibuprofen for pain and its anti- inflammatory nature. Recommend 400 mg every 8 hours. While on this medication would recommend the use of omeprazole 20 mg stay for gastric protection. In addition given her immune status will use Keflex 500 mg p.o. b.i.d. in the event that she also has underlying cellulitis although I do not see any erythema today. Patient is in agreement with this plan. 2. Myttnhtbrhw-uwripw-cr with primary MD in 1 week for recheck. Return to the ER for worsening symptoms. Medical Records Medical records reviewed: Yes I reviewed the patient's medical records Lab Data Lab results reviewed: Yes I reviewed the patient's lab results Labs: Lab Results 01/19/25 Range/Units 17:40 WBC 10.94 (4.50-11.00) K/uL RBC 3.96 L (4.00-5.20) m/uL Hgb 12.1 (12.0-16.0) gm/dL Hct 35.9 (33.0-51.0) % MCV 91 (80-100) fL MCH 31 (26-34) pg MCHC 34 (32-36) gm/dL RDW Coeff of Elyse 12.9 (11.5-15.5) % Plt Count 275 (140-440) K/uL Neut % (Auto) 41.4 L (42.0-72.0) % Lymph % (Auto) 26.4 (20-44) % Love % (Auto) 6.3 (0.0-11.0) % Eos % (Auto) 24.9 H (0.0-7.0) % Baso % (Auto) 0.9 (0.0-3.0) % Neut # (Auto) 4.50 (1.7-7.0) K/uL Lymph # (Auto) 2.89 (0.90-2.90) K/uL Love # (Auto) 0.70 (0.00-0.90) K/UL Eos # (Auto) 2.70 H (0.00-0.50) K/uL Baso # (Auto) 0.10 (0.00-0.30) K/uL Abs Immat Gran (auto) 0.01 (0.00-0.30) K/uL Imm/Tot Granulo (auto) 0.1 % INR 1.02 (0.91-1.10) Sodium 137 (135-149) mmol/L Potassium 3.6 (3.6-5.1) mmol/L Chloride 107 (96-114) mmol/L Carbon Dioxide 26 (20-32) mmol/L Anion Gap 4 L (7-15) mEq/L BUN 6 (5-24) mg/dL Creatinine 0.6 (0.5-1.5) mg/dL Estimated Creat Clear 110.44 Estimated GFR 116 ml/min Glucose 81 (60-115) mg/dL Calcium 8.8 (8.4-10.6) mg/dL C-Reactive Protein < 0.5 L (0.5-1.0) mg/dL Imaging Data Venous US: Attestation: I have reviewed the pertinent imaging results. Radiologist's impression: The left internal jugular, subclavian, and axillary veins are patent with normal waveforms. The brachial, basilic veins are fully compressible. There is lack of compressibility within the cephalic vein from the proximal forearm to the distal forearm consistent with superficial thrombus. No soft tissue abnormalities seen. Impression: Superficial thrombus in the left cephalic vein in the forearm. Discharge Plan Discharge Clinical Impression: Superficial thrombophlebitis Qualifiers: Superficial thrombophlebitis-Involved body area: upper extremity Laterality: left Qualified Code(s): I80.8 - Phlebitis and thrombophlebitis of other sites Patient Disposition: Home, Self-Care Condition: Improved Additional Instructions: 1. Keflex is an antibiotic that I have prescribed in the event that there is an infectious component to this thrombophlebitis and given the fact that you are on medications which may decrease your immune status. This can be obtained in our [employer] machine. 2. Ibuprofen 400 mg every 8 hours. While this will help with the discomfort I am using this more as an anti-inflammatory. Would recommend increasing fluids while on this medicine as well as using omeprazole which is an vshu-hvw-ejbctup anti acid medication daily. One tablet is 20 mg and this should be sufficient. 3. Follow-up with your primary MD next week to ensure improvement and to see if a change in medication is needed. 4. Return to the ER for worsening symptoms. Prescriptions: No Action norgestimate-ethinyl estradiol [Estarylla] 0.25-35 mg-mcg tablet 1 tab PO DAILY Briumvi 25 mg/mL solution 450 mg IV Q24W gabapentin 100 mg capsule 100 mg PO QPM Follow Up/Referrals: Margot Jo MD [Primary Care Provider, Family Practice] Stand Alone Forms: MyHealth Info Instructions
--- NOTE | 2025-01-19 17:29 | CRLHL7_ITS ---
For Patients: As a result of the Century Cures Act, medical imaging exams and procedure reports are released immediately into your electronic medical record. You may view this report before your referring provider. If you have questions, please contact your health care provider. Indication: left arm pain, firmness over venous system lateral, M.S. injection 3 weeks ago. Technique: Ultrasound venous duplex upper left extremity. Compression venous exam was performed using aponte-scale, color Doppler, and spectral Doppler imaging. Comparison: None. Findings: The left internal jugular, subclavian, and axillary veins are patent with normal waveforms. The brachial, basilic veins are fully compressible. There is lack of compressibility within the cephalic vein from the proximal forearm to the distal forearm consistent with superficial thrombus. No soft tissue abnormalities seen. Impression: Superficial thrombus in the left cephalic vein in the forearm. Dictated by Madeleine Dewitt MD @ 01/19/2025 7:21:29 PM (Electronically Signed)
[2025-01-19 17:50] LABS: Hematocrit* 35.9 % (33.0-51.0); Hemoglobin* 12.1 gm/dL (12.0-16.0); Immature Granulocytes Abs Auto 0.01 K/uL (0.00-0.30); Immature Granulocytes Pct Auto 0.1 %; Lymphocytes Absolute Auto 2.89 K/uL (0.90-2.90); Mean Corpuscular HGB Conc 34 gm/dL (32-36); Mean Corpuscular Hemoglobin 31 pg (26-34); Mean Corpuscular Volume 91 fL (80-100); RDW Coefficient of Variation % 12.9 % (11.5-15.5); Red Blood Count* 3.96 m/uL (4.00-5.20); White Blood Count* 10.94 K/uL (4.50-11.00)
[2025-01-19 17:53] LABS: Slide Review Reflex No
[2025-01-19 18:05] LABS: Chloride* 107 mmol/L (96-114); Potassium* 3.6 mmol/L (3.6-5.1); Sodium* 137 mmol/L (135-149)
[2025-01-19 18:06] LABS: INR 1.02 (0.91-1.10); Prothrombin Time 14.2 Seconds
[2025-01-19 18:08] LABS: Blood Urea Nitrogen* 6 mg/dL (5-24); Creatinine* 0.6 mg/dL (0.5-1.5); Est. Creatinine Clearance* 110.44; Estimated Glomerular Filt Rate 116 ml/min
[2025-01-19 18:09] LABS: Anion Gap 4 mEq/L (7-15); Calcium* 8.8 mg/dL (8.4-10.6); Carbon Dioxide* 26 mmol/L (20-32); Glucose* 81 mg/dL (60-115)
== END 2025-01-19 19:46 | disposition home or self-care (01) ==
PROVIDERS: Emergency Provider Family Medicine; PCP Family Medicine
DX: I80.8 Phlebitis and thrombophlebitis of other sites (principal)
CPT/HCPCS: 36415; 80048; 85025; 85610; 86140; 93971; 99284